=== PATIENT | female | born 1990 | race Caucasian/White ===

== ENCOUNTER 2016-04-24 23:44 | Emergency (ER) ==
[2016-04-24 23:58] VITALS: BP 136/73
--- NOTE | 2016-04-25 00:24 | PROVIDER DOCUMENTATION ---
HPI-Musculoskeletal Pain/Inj - GENERAL Source: patient - HX OF PRESENT ILLNESS-MUSKULOSKELTAL Quality of Pain: reports: aching Severity in ED: mild Onset/Duration: 3 days ago Timing: still present Modifying Factors: worse with: movement Any recent injury?: No Locality of Occurance: Home Similar Symptoms Previously?: Yes Recently seen or treated by another doctor?: No - BACK & NECK PAIN/INJURY Context / Method of Injury: reports: unknown Associated Symptoms: reports: denies symptoms History of Chronic Neck or Back Pain?: Yes <Blank Valdes - Last Filed: 04/25/16 00:35> <Bjorn Matt - Last Filed: 04/26/16 16:35> - GENERAL Chief Complaint: Back Pain Stated Complaint: LOWER BACK PAIN Time Seen by Provider: 04/25/16 00:18 - HX OF PRESENT ILLNESS-MUSKULOSKELTAL Nature of Presenting Problem: 25 year old F presents to the ED with a cc of mid back pain x2 days. Pt states that she woke up from her nap and could not move. Pt states that she has a hx of scoliosis. (Blank Valdes) Review of Systems - Adult - REVIEW OF SYSTEMS - ADULT Constitutional: denies: chills, fever Eyes: reports: no symptoms reported Ears, Nose, Mouth & Throat: reports: no symptoms reported Cardiovascular: reports: no symptoms reported Respiratory: reports: no symptoms reported Gastrointestinal: denies: nausea, vomiting Genitourinary: denies: dysuria, hematuria Musculoskeletal: reports: back pain. denies: neck pain Integumentary: denies: skin sores/ulcer, skin thickening Neurological: reports: no symptoms reported Psychiatric: reports: no symptoms reported Endocrine: reports: no symptoms reported Hematologic/Lymphatic: reports: no symptoms reported Allergic/Immunologic: reports: no symptoms reported All Other Systems: Reviewed and Negative <Blank Valdes - Last Filed: 04/25/16 00:35> Past History - Adult - PAST MEDICAL HISTORY-ADULT Review of Records: reports: Nursing Assessment Review, Medications Reviewed Major Childhood Illnesses: reports: denies history Musculoskeletal: reports: other (scoliosis) Other Conditions: reports: other (frequent abscesses) - PRIOR SURGERIES/PROCEDURES Surgical/Procedure History: reports: , other (removal of right ovary and fallopian tube) - IMMUNIZATION STATUS Childhood Immunizations: See Nurse Assessment Flu Vaccine: See Nurse Assessment - SOCIAL HISTORY Smoking: cigarettes, less than 1 pack/day Provider spent 3-5 mins advising pt. on dangers of tobacco.: Discussed manners to quit use, and f/u contacts for add'l counseling. Substance Use: none/never Alcohol Use Frequency: never <Blank Valdes - Last Filed: 04/25/16 00:35> Physical Exam-Injury Related - Physical Exam-Injury Related Initial Vital Signs Reviewed: Yes General Appearance: appears well, alert, no apparent distress Respiratory: no respiratory distress Cardiovascular: regular rate, rhythm Integumentary: normal color, warm/dry Psych/Mental Status: normal mood/affect, normal thought content, normal thought process, oriented x 3 <Blank Valdes - Last Filed: 04/25/16 00:35> Progress <Blank Valdes - Last Filed: 04/25/16 00:35> <Bjorn Matt - Last Filed: 04/26/16 16:35> - PLAN OF CARE/RESULTS Progress/Plan/Lab Results: plan of care: medications Orders Category Date Time Status Acetaminophen with Codeine [Tylenol with Codeine #3] Med 04/25/16 00:32 Discontinued 1 each PO NOW ONE Promethazine [Phenergan] Med 04/25/16 00:33 Discontinued 25 mg PO NOW ONE Vital Signs - 24 hr 04/24/16 23:53 Temperature 97.2 F L Pulse Rate 109 H Respiratory 20 Rate Blood Pressure 136/73 O2 Sat by Pulse 96 Oximetry Pt given results and will be d/c home w/ rx to follow up with PCP. Pt verbally understood instructions. PT remained clinically stable throughout the course of the ED stay and will return if symptoms worsen. (Blank Valdes) Departure <Blank Valdes - Last Filed: 04/25/16 00:35> - Departure Time of Disposition Order: 00:28 Certified Medical Emergency: Emergent <Bjorn Matt - Last Filed: 04/26/16 16:35> - Departure DIAGNOSIS: Scoliosis deformity of spine Qualifiers: Scoliosis type: unspecified scoliosis Spinal region: thoracolumbar Qualified Code(s): M41.9 - Scoliosis, unspecified Disposition: HOME 01 Condition: Stable Additional Instructions: ED Follow Up Instructions: You have been treated by a care provider in the Emergency Department. These instructions are being provided to you so you can have an understanding of how to care for yourself upon discharge. Upon discharge from the Emergency Department, you are responsible for making arrangements for follow-up care by a physician of your choice. Take all prescribed medications as directed. Return to the Emergency Department immediately for any new or worsening symptoms. You may call the Physician Referral phone number at [phone] to obtain a list of Physicians who are taking new patients. Prescriptions: Acetaminophen with Codeine [Tylenol with Codeine #3 Tablet] 1 each PO Q6H PRN PRN #30 tablet PRN Reason: Pain Celecoxib [Celebrex] 100 mg PO BID #20 capsule Referrals: Jazzy Diaz CRNP [Primary Care Provider] - Forms: Return to School/Parent Work Instructions: Scoliosis, Celecoxib capsules, Acetaminophen tablets or caplets, Acetaminophen; Codeine tablets Attestation - Scribe Verification/Attestation Scribe:: Blank Valdes Acting as Scribe for:: Bjorn Matt Scribe documention review:: This chart was documented by a scribe and accurately reflects the service the provider performed and the decisions made by the provider. <Blank Valdes - Last Filed: 04/25/16 00:35> Physician Attestation - Physician Attestation I, the provider, attest to the following statement:: Bjorn Matt Physician documentation Attestation:: This documentation recorded by the scribe accurately reflects the service I personally performed and the decisions made by me. <Blank Valdes - Last Filed: 04/25/16 00:35>
[2016-04-25] MEDS ORDERED: TYLENOL WITH CODEINE #3 PO ONE (00:32)
[2016-04-25] MEDS ORDERED: PHENERGAN PO ONE (00:33)
== END 2016-04-25 00:52 | disposition home or self-care (01) ==
LOC: P.ED 23:44
DX: M41.9 Scoliosis, unspecified (principal); M54.9 Dorsalgia, unspecified; F17.210 Nicotine dependence, cigarettes, uncomplicated; Z71.6 Tobacco abuse counseling
CPT/HCPCS: 99283